=== PATIENT | male | born 1995 | race Two or more races ===

== ENCOUNTER 2019-05-17 17:16 | Emergency (ER) | payer SELFPAY ==
[~2019-05-17] VITALS: Ht 177.8 cm; Wt 70.3 kg
[2019-05-17 18:38] LABS: Albumin 4.5 g/dL (3.4-5.0); Anion Gap 5 (5-15); Blood Urea Nitrogen 15 mg/dL (7-18); Calcium 9.3 mg/dL (8.5-10.1); Carbon Dioxide 27 mmol/L (21-32); Chloride 106 mmol/L (98-107); Glucose 93 mg/dL (74-106); Magnesium 2.2 mg/dL (1.6-2.6); Potassium 3.9 mmol/L (3.5-5.1); Sodium 138 mmol/L (136-145)
[2019-05-17 18:44] LABS: Alanine Aminotransferase 39 U/L (16-61); Alkaline Phosphatase 149 U/L (45-117); Aspartate Aminotransferase 21 U/L (15-37); BUN/Creatinine Ratio 16.5; Bilirubin, Total 0.9 mg/dL (0.2-1.0); GFR African American 134 mL/min; GFR Non-African American 111 mL/min; Total Protein 8.4 g/dL (6.4-8.2)
[2019-05-17 19:26] LABS: Basophils # (auto) 0 uL; Basophils % (auto) 0.3 % (0.0-2.0); Eosinophils # (auto) 0 uL; Eosinophils % (auto) 0.2 % (0.0-7.0); Hematocrit 46.7 % (41.0-53.0); Hemoglobin 16.1 g/dL (13.5-17.5); Lymphocytes # (auto) 1.2 uL; Lymphocytes % (auto) 17.7 % (10.0-50.0); Mean Corpuscular Hemoglobin 32.7 pg (28.0-32.0); Mean Corpuscular Hgb Conc. 34.5 g/dL (32.0-36.0); Mean Corpuscular Volume 94.8 fL (80.0-100.0); Monocytes # (auto) 0.5 uL; Monocytes % (auto) 7.7 % (0.0-12.0); Neutrophils # (auto) 5.2 uL; Neutrophils % (auto) 74.1 % (37.0-80.0); Nucleated Red Blood Cells % 0.1 %; Platelet Count (auto) 298 10^3/uL (140-450); Red Blood Cells 4.92 10^6/uL (4.5-5.90)
[2019-05-17 21:32] LABS: Alcohol, Urine < 3.0 mg/dL (0-5); Amphetamine Screen, Urine NEGATIVE (NEGATIVE); Barbiturate Scree,Urine NEGATIVE (NEGATIVE); Benzodiazephine Screen, Urine NEGATIVE (NEGATIVE); Cannabinoid Screen, Urine POSITIVE (NEGATIVE); Cocaine Screen, Urine NEGATIVE (NEGATIVE); Opiate Scree,Urine NEGATIVE (NEGATIVE); Phencyclidine Screen, Urine NEGATIVE (NEGATIVE)
[2019-05-17 22:13] VITALS: BP 130/66
== END 2019-05-17 22:18 | disposition home or self-care (01) ==
LOC: ER 17:22
DX: R07.89 Other chest pain (principal); F15.10 Other stimulant abuse, uncomplicated; F17.210 Nicotine dependence, cigarettes, uncomplicated; F12.10 Cannabis abuse, uncomplicated
CPT/HCPCS: 36415; 71046; 80053; 80307; 83735; 84484; 85025

== ENCOUNTER 2021-09-09 18:11 | Emergency (ER) | payer OTHER ==
[~2021-09-09] VITALS: Ht 177.8 cm; Wt 77.1 kg
[2021-09-09 18:21] VITALS: BP 160/75
== END 2021-09-09 19:56 | disposition left against medical advice (07) ==
LOC: ER 18:27
DX: S60.572A Other superficial bite of hand of left hand, initial encounter (principal); Z53.21 Procedure and treatment not carried out due to patient leaving prior to being seen by health care provider; W54.0XXA Bitten by dog, initial encounter; Y93.89 Activity, other specified; Y92.89 Other specified places as the place of occurrence of the external cause; Y99.8 Other external cause status